=== PATIENT | female | born 1980 | race Caucasian/White ===

== ENCOUNTER 2019-12-26 17:26 | Emergency (ER) | payer MEDICARE, MEDICAID, SELFPAY ==
--- NOTE | ~2019-12-26 | XR_ITS ---
EXAMINATION: XR wrist LT min 3V DATE: 12/26/2019 18:25 INDICATION: Left wrist pain post fall on ice one month prior TECHNIQUE: Posteroanterior, ulnar deviation, oblique, and lateral views of the left wrist were obtain ed. COMPARISON: Left hand radiographs dated 10/02/2014 FINDINGS: Alignment is normal. No fracture. Mild osteoarthritis at the first-third metacarpophalangeal and firs t interphalangeal joints. IMPRESSION: 1. Mild polyarticular osteoarthritis. No evident acute/subacute osseous abnormality. Reviewed, dictated and finalized at location A. [employer]GER IMPRESSION: 1. Mild polyarticular osteoarthritis. No evident acute/subacute osseous abnorma lity.
[2019-12-26 18:01] VITALS: BP 105/73; PULSE 70; RESP 20; TEMP 36.7; O2SAT 98
--- NOTE | 2019-12-26 18:17 | ED.UPPEXIN ---
HPI - Extremity Injury (Upper) General Chief Complaint: Extremity Injury, Upper Stated Complaint: left wrist pain Time Seen by Provider: 12/26/19 18:17 Source: patient History of Present Illness HPI narrative: Patient presents with an injury to the left wrist 6 weeks ago. Patient has been followed by the orthopedic MD and was notified that there was no fracture to the left wrist. Patient returns today for new x-ray she has continued pain with movement to the left wrist. No swelling no numbness or tingling no bruising no open areas no deformity noted. Patient denies any new injury. MD complaint: injury to: left and wrist Other Extremity Injury: Left: wrist (No new injury) Related Data Home Medications Medication Instructions Recorded Confirmed Lamictal 12/26/19 Mobic 12/26/19 Topamax 12/26/19 Zoloft 12/26/19 amlodipine 12/26/19 gabapentin 12/26/19 oxybutynin chloride 12/26/19 Allergies Allergy/AdvReac Type Severity Reaction Status Date / Time gabapentin Allergy Unknown Hives Verified 12/26/19 18:29 meloxicam Allergy Unknown Hives Verified 12/26/19 18:29 STEROIDS Allergy Mild Unknown Uncoded 12/26/19 18:29 Review of Systems Review of Systems: Narrative: CONSTITUTIONAL: Denies fever, chills, or sweats. EYES: Denies visual changes, redness, or discharge. ENT: Denies rhinorrhea, congestion, sore throat, or otalgia. CARDIOVASCULAR: Denies chest pain, palpitations, or edema. RESPIRATORY: Denies cough or dyspnea. GASTROINTESTINAL: Denies abdominal pain, nausea, vomiting, or diarrhea. GENITOURINARY: Denies dysuria or hematuria. SKIN: Denies rash or itching. MUSCULOSKELETAL: Denies back pain, joint pain, or myalgia. Continued left wrist pain NEUROLOGIC: Denies headache, numbness, or weakness. PSYCHIATRIC: Denies anxiety or depression. PMFSH Social History Social History Gender identity (if verbalized by the patient): Female Comments At time of signature, agree with nursing past medical, surgical, social and family history. There is no relevant family history pertinent to the presenting complaint Exam Narrative: Exam Narrative: GENERAL: Well-appearing, well-nourished, and in no acute distress. HEAD: Normocephalic, atraumatic. EYES: PERRLA and EOMI. ENT: Nares clear, no rhinorrhea or epistaxis. Mucous membranes moist. NECK: Supple. CHEST: Clear to auscultation. No respiratory distress. HEART: Regular rate and rhythm. No murmur heard. Normal peripheral pulses. ABDOMEN: Soft, nontender, nondistended, normal active bowel sounds. EXTREMITIES: Normal range of motion. No edema. HAND EXAM - Skin intact, no laceration, no swelling, no erythema, normal digit cascade with flexion of fingers, median nerve, ulnar nerve, radial nerve is intact. Normal sensation of each side of each finger, can perform `ok? sign, `cross over finger test of index and middle fingers? and `thumbs up? sign, normal thumb opposition, no scissoring. good capillary refill and radial pulse. normal flexion and extension of fingers and wrist. normal supination at wrist. Normal forearm and elbow exam. SKIN: Warm, dry, no rash. NEURO: No focal deficits. Alert and oriented x3. Yadi Coma Scale Eye Opening: Spontaneous 4 Yadi Coma Scale Motor: Obeys Commands 6 Yadi Coma Scale Verbal: Oriented 5 [place] Coma Scale Total 15 Course Vital Signs Vital signs: Vital Signs Temperature 36.7 C 12/26/19 18:01 Pulse Rate 70 12/26/19 18:01 Respiratory Rate 20 12/26/19 18:01 Blood Pressure 105/73 12/26/19 18:01 Pulse Oximetry 98 12/26/19 18:01 Temperature 36.7 C 12/26/19 18:01 Pulse Rate 70 12/26/19 18:01 Respiratory Rate 20 12/26/19 18:01 Blood Pressure 105/73 12/26/19 18:01 Pulse Oximetry 98 12/26/19 18:01 MDM - Extremity Injury (Upper) Differential Diagnosis Differential diagnosis: Likely sprain and strain of wrist, fracture of wrist, finger sprain,
== END 2019-12-26 18:45 | disposition home or self-care (01) ==
PROVIDERS: Emergency Provider Nurse Practitioner Family
DX: S63.502D Unspecified sprain of left wrist, subsequent encounter (principal); S66.912D Strain of unspecified muscle, fascia and tendon at wrist and hand level, left hand, subsequent encounter; X58.XXXD Exposure to other specified factors, subsequent encounter; M19.032 Primary osteoarthritis, left wrist; M79.7 Fibromyalgia; Z96.641 Presence of right artificial hip joint
CPT/HCPCS: 73110; 99213; G0463

== ENCOUNTER 2023-04-18 19:46 | Emergency (ER) | payer MEDICARE, BC, MEDICAID, SELFPAY ==
[2023-04-18 19:55] VITALS: BP 111/73; PULSE 81; RESP 20; TEMP 36.9; O2SAT 100
--- NOTE | 2023-04-18 20:49 | ED.URI ---
HPI - URI/Sore Throat General Chief Complaint: Upper Respiratory Infection Stated Complaint: cough History of Present Illness HPI Narrative: Pt is a 43 y/o female, presents to 5 day hx of cough, rhinorrhea and spasmodic wheezing. No fevers. She notes she is feeling better but she cannot stop coughing and often experiences coughing fits when she laughs or talks. She has experienced this in the past with bronchitis, prompting her visit. She is not taking any OTC meds. She is out of her inhaler. She requests a cough suppressant as well but states she cannot take liquid medications as it causes her to gag. Related Data Home Medications Medication Instructions Recorded Confirmed atorvastatin 40 mg tablet 40 mg PO DIRECTED 04/18/23 04/18/23 cholecalciferol (vitamin D3) 50 50 mcg PO DIRECTED 04/18/23 04/18/23 mcg (2,000 unit) capsule lamotrigine 150 mg tablet 150 mg PO DIRECTED 04/18/23 04/18/23 oxybutynin chloride 5 mg tablet 5 mg PO DIRECTED 04/18/23 04/18/23 tirzepatide 5 mg/0.5 mL 5 mg subcut DIRECTED 04/18/23 04/18/23 subcutaneous pen injector (Mounjaro) topiramate 100 mg tablet 100 mg PO DIRECTED 04/18/23 04/18/23 ubrogepant 100 mg tablet (Ubrelvy) mg 04/18/23 Allergies Allergy/AdvReac Type Severity Reaction Status Date / Time gabapentin Allergy Unknown Hives Verified 04/18/23 20:00 meloxicam Allergy Unknown Hives Verified 04/18/23 20:00 STEROIDS AdvReac Mild Dizziness Uncoded 04/18/23 20:00 Review of Systems Constitutional: Comments: no fevers Respiratory: Comments: refer to [facility] Social History Social History Gender identity (if verbalized by the patient): Female Exam Const: General: healthy appearing, no acute distress and alert Orientation/consciousness: patient oriented x3 Limitations: no limitations Other: appears older than stated age HENMT: Head: normal to inspection Face/Nose/Sinus: Normal external nose present Face and sinus: normal facial exam Mouth: Yes Normal oral and palatal mucosa present and Yes lip normal Teeth and gingiva: dentition normal Throat: posterior oropharynx normal and uvula midline Eyes: Conjunctivae: conjunctivae normal Resp: Effort & Inspection: normal respiratory effort Auscultation: clear to auscultation bilaterally Other: spasmodic cough, no wheezing rales or rhonchi during normal inhalation and exhalation. She does have a forced wheeze when she is actively coughing Cardio: Rate: regular rate Rhythm: regular rhythm Skin: General skin exam: normal color Neuro: General: patient oriented x3 and moves all extremities Cranial nerves: Yes Nystagmus not present Speech: normal speech Gait exam (Neuro): Normal gait present Course Course Emergency Course: pt is advised of plan to treat with oral steroids, cough suppressant (promethazine DM compounded at home by taking promethazine with OTC Delsym for oral cough relief in a non liquid form), inhaler FU with PCP stressed if symptoms are not improving. Level of Care: Express Care Visit ([id number]) Vital Signs Vital signs: Vital Signs Temperature 36.9 C 04/18/23 19:55 Pulse Rate 81 04/18/23 19:55 Respiratory Rate 20 04/18/23 19:55 Blood Pressure 111/73 04/18/23 19:55 Pulse Oximetry 100 04/18/23 19:55 Temperature 36.9 C 04/18/23 19:55 Pulse Rate 81 04/18/23 19:55 Respiratory Rate 20 04/18/23 19:55 Blood Pressure 111/73 04/18/23 19:55 Pulse Oximetry 100 04/18/23 19:55 MDM - URI/Sore Throat Differential Diagnosis Differential diagnosis: Likely upper respiratory infection, sinusitis, viral infection and bronchitis Discharge Plan Discharge Clinical Impression: Bronchitis Patient Disposition: Home, Self-Care Condition: Stable Instructions: Antibiotic Form, Acute Bronchitis (ED) Additional Instructions: START AND COMPLETE STEROIDS DIRECTED. YOU MAY MAKE A C
== END 2023-04-18 20:00 | disposition home or self-care (01) ==
PROVIDERS: Emergency Provider Nurse Practitioner Family; PCP Nurse Practitioner Family
DX: J40 Bronchitis, not specified as acute or chronic (principal)
CPT/HCPCS: 99213; G0463

== ENCOUNTER 2024-03-12 19:06 | Emergency (ER) | payer MEDICARE, SELFPAY ==
--- NOTE | ~2024-03-12 | CT_ITS ---
EXAMINATION: CT abdomen pelvis wo con DATE: 03/12/2024 21:05 INDICATION: Flank pain. TECHNIQUE: Computed tomography (CT) of the abdomen and pelvis was performed without intravenous contr ast. Automated exposure control and iterative reconstruction technique were employed. The dose-length product was 250.41 mGy-cm. COMPARISON: CT abdomen 08/29/2005 FINDINGS: The visualized portions of the lung bases are clear without pneumonia or pleural effusion. The heart size is normal. No pericardial effusion. The liver is normal. There are changes of cholecys tectomy. The spleen, pancreas, and adrenal glands are normal. There is fusion of the inferior poles o f the kidneys across the midline (horseshoe kidney). There is a 2 mm stone in left kidney. There are no dilated loops of bowel. The appendix is normal. There is calcified atherosclerosis of the aorta an d many of the other arteries. There are no pathologically enlarged lymph nodes. There is no free intr aperitoneal fluid. There is mild thoracic and lumbar spondylosis. IMPRESSION: 1. Small nonobstructing left kidney stone. Reviewed, dictated and finalized at location E.
[2024-03-12 19:33] VITALS: BP 103/67; PULSE 67; RESP 18; TEMP 36.5; O2SAT 100
--- NOTE | 2024-03-12 19:35 | ED.GENADULT ---
HPI - General Adult General Chief complaint: Urogenital-Female Stated complaint: flank pain Time Seen by Provider: 03/12/24 19:08 History of Present Illness HPI narrative: 44-year-old female present to the emergency department for evaluation of persistent left flank pain. Patient began having symptoms of urinary tract infection history did have follow-up with her primary care physician. Patient was started on Macrobid and Pyridium as outpatient. Patient states that the Pyridium as help with some of her urgency symptoms with patient is still having left flank pain. 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 Patient called her primary care physician telling her about the persistent pain and she was referred to the emergency department for further workup. Patient does report associated nausea without vomiting and left flank pain. Related Data Home Medications Medication Instructions Recorded Confirmed lamotrigine 150 mg tablet 150 mg PO DIRECTED 04/18/23 03/11/24 oxybutynin chloride 5 mg tablet 5 mg PO DIRECTED 04/18/23 03/11/24 tirzepatide 5 mg/0.5 mL 5 mg subcut DIRECTED 04/18/23 03/11/24 subcutaneous pen injector (Mounjaro) ubrogepant 100 mg tablet (Ubrelvy) mg 04/18/23 03/11/24 clonazepam 0.5 mg tablet (Klonopin) 0.5 mg PO DAILY 06/21/23 03/11/24 zolpidem 5 mg tablet 5 mg PO 06/21/23 03/11/24 topiramate 100 mg tablet 100 mg PO DAILY 01/31/24 03/11/24 Allergies Allergy/AdvReac Type Severity Reaction Status Date / Time gabapentin Allergy Unknown Hives Verified 03/12/24 19:38 meloxicam Allergy Unknown Hives Verified 03/12/24 19:38 STEROIDS AdvReac Mild Dizziness Uncoded 03/12/24 19:38 Review of Systems Review of Systems: All systems reviewed & are unremarkable except as noted in HPI and below PMFSH Past Medical History Medical History Anxiety Arthritis Bipolar 1 disorder Episodic migraine Fibromyalgia Hyperlipidemia Insomnia OAB (overactive bladder) Obese Vaginal discharge Surgical History Surgical History H/O thumb surgery H/O tubal ligation H/O: hysterectomy History of delivery History of cholecystectomy History of orthopedic surgery multiple Hx of tonsillectomy Family History Family History Father Acute myocardial infarction Diabetes mellitus Heart disease Hypertension Mother Cervical cancer Grandparent Breast cancer Social History Social History Social History: Patient very confident in filling out medical forms. 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 HEAD: normocephalic, atraumatic. EYES: PERRLA/EOMI, conjunctivae clear. NOSE: Normal no drainage EARS:TMS clear with good light reflex. THROAT: Pharynx clear, no exudate. NECK: Supple. No adenopathy, no masses. RESPIRATORY: Airway patent, respirations nonlabored. Clear to auscultation bilaterally, no rales, rhonchi, wheezing. CARDIOVASCULAR: Regular rate and r
[2024-03-12 19:37] VITALS: BP 103/67; PULSE 67; RESP 18; TEMP 36.5; O2SAT 100
[2024-03-12 19:50] LABS: Basophils Percent Auto 0.3 % (0.2-1.2); Eosinophils Absolute Auto 0.1 K/mm3 (0-0.3); Eosinophils Percent Auto 2.1 % (0-4.4); Hematocrit 40.6 % (37.0-47.0); Hemoglobin 12.9 g/dL (12.0-15.0); Lymphocytes Absolute Auto 1.63 K/mm3 (0.9-3.2); Lymphocytes Percent Auto 43.4 % (18.3-44.2); Mean Corpuscular HGB Conc 31.8 g/dl (32-36); Mean Corpuscular Hemoglobin 28.6 pg (26-34); Mean Platelet Volume 9.4 fl (7.4-10.4); Monocytes Absolute Auto 0.2 K/mm3 (0.1-0.6); Monocytes Percent Auto 6.4 % (2.6-8.5); Neutrophils Absolute Auto 1.8 K/mm3 (1.3-6.7); Neutrophils Percent Auto 47.8 % (45.5-73.1); Platelet Count Result 190 k/mm3 (150-375); Red Blood Count 4.51 M/mm3 (4.2-5.4); Red Cell Distribution Width 12.9 % (11.5-14.5); White Blood Count 3.8 K/mm3 (4.5-10.0)
[2024-03-12] MEDS: HYDROmorphone HCL INJ (*CRX) 1 MG/ML SYR 0.5 MG IV PUSH (20:00)
[2024-03-12] MEDS: ONDANSETRON INJ 4 MG/2 ML VIAL IV PUSH (20:00)
[2024-03-12] MEDS: SODIUM CHLORIDE 0.9% IV 1,000 ML 999 ML IV CONT (20:00)
[2024-03-12 20:04] LABS: Alanine Aminotransferase 22 U/L (6-35); Albumin Level 4.3 g/dL (3.5-5.1); Alkaline Phosphatase 75 U/L (38-126); Anion Gap 7 mmol/L (4-12); Aspartate Amino Transferase 27 U/L (14-36); Bilirubin,Total 0.5 mg/dL (0.2-1.3); Blood Urea Nitrogen 14 mg/dL (7-17); Carbon Dioxide 27 mmol/L (22-30); Chloride 106 mmol/L (98-107); Estimated CRCL calculation 57 ml/min; Estimated Glomerular Filt Rate > 60; Glucose 77 mg/dL (65-110); Potassium 3.2 mmol/L (3.4-5.0); Sodium 140 mmol/L (137-145)
[2024-03-12 20:37] LABS: Add Urine Microscopic? YES; Appearance Urine Clear (Clear); Bacteria Urine None Seen /hpf; Bilirubin Urine Negative (Negative); Blood Urine Negative (Negative); Color Urine Dark Yellow (Yellow); Glucose Urine UA Negative (Negative); Ketones Urine Negative (Negative); Leukocyte Esterase Ur 1+ LEU/UL (Negative); Need Manual Microscopic Reviewed; Nitrate Urine Positive (Negative); Non Pathogenic Casts 0-2; Protein Urine Negative (Negative); RBC Urine 0-2 /hpf (0-2); Specific Grav Ur 1.006 (1.001-1.035); Squamous Epithelial Cell Urine None Seen /hpf (Few); WBC Urine 0-5 /hpf (0-3); pH Urine 6.5 (5.0-9.0)
[2024-03-12 20:44] LABS: Pregnancy On Board Control Positive; Urine Pregnancy Test Negative
[2024-03-12 21:52] VITALS: BP 102/63; PULSE 71; RESP 18; O2SAT 100
== END 2024-03-12 21:55 | disposition home or self-care (01) ==
PROVIDERS: Emergency Provider Emergency Medicine; PCP Nurse Practitioner Family
DX: N39.0 Urinary tract infection, site not specified (principal); N32.81 Overactive bladder; M79.7 Fibromyalgia; M19.90 Unspecified osteoarthritis, unspecified site; E66.9 Obesity, unspecified; Z68.20 Body mass index [BMI] 20.0-20.9, adult; Q63.1 Lobulated, fused and horseshoe kidney; F31.9 Bipolar disorder, unspecified; F41.9 Anxiety disorder, unspecified; Z87.891 Personal history of nicotine dependence; Z90.710 Acquired absence of both cervix and uterus; Z90.49 Acquired absence of other specified parts of digestive tract; N20.0 Calculus of kidney
CPT/HCPCS: 36415; 74176; 80053; 81001; 81025; 85025; 96361; 96374; 96375; 99284; J1170; J2405; J7030

== ENCOUNTER 2024-03-29 19:49 | Emergency (ER) | payer MEDICARE, SELFPAY ==
[2024-03-29 19:55] VITALS: BP 105/70; PULSE 81; RESP 16; TEMP 36.4; O2SAT 100
--- NOTE | 2024-03-29 21:26 | ED.EXTPRO ---
HPI - Extremity Problem General Chief complaint: Extremity Problem,Nontraumatic Stated complaint: Right calf pain Time Seen by Provider: 03/29/24 20:44 History of Present Illness HPI Narrative: Patient is a 44-year-old female who presents to the emergency department this evening complaining of swelling to her right calf. Patient states that she did not notice swelling herself but somebody else noticed it and she does admit that she does have some pain in her right calf lesion. She denies any recent flights or extended car rides, denies any family history of blood clotting disorders and denies any current hormonal use. Patient is also denying any chest pain or shortness of breath, any fevers or chills, denies any additional symptoms or concerns at this time. Related Data Home Medications Medication Instructions Recorded Confirmed lamotrigine 150 mg tablet 150 mg PO DIRECTED 04/18/23 03/11/24 oxybutynin chloride 5 mg tablet 5 mg PO DIRECTED 04/18/23 03/11/24 tirzepatide 5 mg/0.5 mL 5 mg subcut DIRECTED 04/18/23 03/11/24 subcutaneous pen injector (Mounjaro) ubrogepant 100 mg tablet (Ubrelvy) mg 04/18/23 03/11/24 clonazepam 0.5 mg tablet (Klonopin) 0.5 mg PO DAILY 06/21/23 03/11/24 zolpidem 5 mg tablet 5 mg PO 06/21/23 03/11/24 topiramate 100 mg tablet 100 mg PO DAILY 01/31/24 03/11/24 Allergies Allergy/AdvReac Type Severity Reaction Status Date / Time gabapentin Allergy Unknown Hives Verified 03/29/24 20:20 meloxicam Allergy Unknown Hives Verified 03/29/24 20:20 STEROIDS AdvReac Mild Dizziness Uncoded 03/29/24 20:20 Review of Systems Review of Systems: All systems are reviewed and are negative unless stated otherwise in the HPI. [facility] Past Medical History Medical History Anxiety Arthritis Bipolar 1 disorder Episodic migraine Fibromyalgia Hyperlipidemia Insomnia OAB (overactive bladder) Obese Vaginal discharge Surgical History Surgical History H/O thumb surgery H/O tubal ligation H/O: hysterectomy History of delivery History of cholecystectomy History of orthopedic surgery multiple Hx of tonsillectomy Family History Family History Father Acute myocardial infarction Diabetes mellitus Heart disease Hypertension Mother Cervical cancer Grandparent Breast cancer Social History Social History Social History: Patient very confident in filling out medical forms. 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 HEENT: PERRL, no rhinorrhea, no post nasal drip, oropharynx clear. Cardiovascular: Regular rate and rhythm, no murmurs, rubs or gallops, no peripheral edema. Respiratory: Clear to auscultation bilaterally, no tachypnea, no wheezing, no rhonchi, no rubs, no respiratory distress. Abdomen: Soft, nontender, nondistended, no rebound, no guarding, no peritoneal signs. Musculoskeletal: No joint swelling or deformity, normal muscle tone, right lower extremity swelling mainly noted around t
== END 2024-03-29 21:38 | disposition home or self-care (01) ==
PROVIDERS: Emergency Provider Emergency Medicine; PCP Nurse Practitioner Family
DX: M79.89 Other specified soft tissue disorders (principal); F41.9 Anxiety disorder, unspecified; M19.90 Unspecified osteoarthritis, unspecified site; F31.9 Bipolar disorder, unspecified; M79.7 Fibromyalgia; E78.5 Hyperlipidemia, unspecified
CPT/HCPCS: 99281

== ENCOUNTER 2024-03-31 07:37 | Outpatient (CLI) | payer MEDICARE, SELFPAY ==
--- NOTE | ~2024-03-31 | US_ITS ---
EXAMINATION:US venous doppler LE RT INDICATION:Swelling and leg pain TECHNIQUE: Multiple grayscale, color flow and Doppler images of the right lower extremity deep venous systems were obtained and reviewed. COMPARISON:No prior studies for comparison. FINDINGS: The common femoral, superficial femoral and popliteal veins demonstrate normal respiratory variation, augmentation and compressibility. Color flow is also seen within the posterior tibial, pe roneal, greater saphenous and profunda veins. IMPRESSION: 1: No lower extremity deep venous thrombosis. Reviewed, dictated and finalized at location B.
== END 2024-03-31 07:38 | disposition home or self-care (01) ==
PROVIDERS: PCP Nurse Practitioner Family; Visit Provider Emergency Medicine
DX: R22.41 Localized swelling, mass and lump, right lower limb (principal)
CPT/HCPCS: 93971

== ENCOUNTER 2024-08-05 09:07 | Emergency (ER) | payer MEDICARE, SELFPAY ==
--- NOTE | ~2024-08-05 | XR_ITS ---
EXAMINATION: XR knee RT 3V DATE: 08/05/2024 10:28 INDICATION: Right knee pain. Fall. TECHNIQUE: 3 views of right knee were obtained. COMPARISON: Right knee radiographs 03/20/2018 FINDINGS: Alignment is normal. No fracture. There is mild tricompartment osteoarthritis. No knee join t effusion. IMPRESSION: 1. Mild right knee osteoarthritis. Reviewed, dictated and finalized at location A.
[2024-08-05 09:13] VITALS: BP 103/65; PULSE 69; RESP 15; TEMP 36.4; O2SAT 100
[2024-08-05] MEDS: KETOROLAC (*BKC) 60 MG/2 ML VIAL IM (09:44)
[2024-08-05 11:29] VITALS: BP 93/65; PULSE 70; RESP 18; TEMP 36.6; O2SAT 96
--- NOTE | 2024-08-05 12:15 | ED.LOWEXIN ---
HPI - Extremity Injury (Lower) General Chief Complaint: Extremity Injury, Lower Stated Complaint: fall, R knee pain Time Seen by Provider: 08/05/24 09:26 History of Present Illness HPI Narrative: Patient is a 44-year-old female who presents ER with right knee pain. She is walking down some steps yesterday when her for went through the step and caused her to strike her knee. She has pain with ambulation as well as flexion extension. No swelling. She has wrapped the area in been taking anti-inflammatories. She did not strike her head or suffer any additional injury. Related Data Home Medications Medication Instructions Recorded Confirmed lamotrigine 150 mg tablet 150 mg PO DIRECTED 04/18/23 06/24/24 ubrogepant 100 mg tablet (Ubrelvy) mg 04/18/23 06/24/24 clonazepam 0.5 mg tablet (Klonopin) 0.5 mg PO DAILY 06/21/23 06/24/24 zolpidem 5 mg tablet 5 mg PO 06/21/23 06/24/24 topiramate 100 mg tablet 100 mg PO DAILY 01/31/24 06/24/24 Allergies Allergy/AdvReac Type Severity Reaction Status Date / Time gabapentin Allergy Unknown Hives Verified 06/24/24 14:19 meloxicam Allergy Unknown Hives Verified 06/24/24 14:19 adhesive tape Allergy Other Verified 08/05/24 09:08 nylon Allergy Other Verified 08/05/24 09:08 STEROIDS AdvReac Mild Dizziness Uncoded 06/24/24 14:19 Review of Systems Constitutional: Constitutional: Reports no additional constitutional complaints Musculoskeletal: Musculoskeletal: Reports arthralgias, Denies joint swelling and Denies muscle cramps Integumentary/Breasts: Skin/Breast: Reports system reviewed and no additional complaints, except as docu Neurologic: Reports system reviewed and no additional complaints, except as documented [facility] Past Medical History Medical History Anxiety Arthritis Bipolar 1 disorder Episodic migraine Fibromyalgia Hyperlipidemia Insomnia OAB (overactive bladder) Obese Vaginal discharge Surgical History Surgical History H/O thumb surgery H/O tubal ligation H/O: hysterectomy History of delivery History of cholecystectomy History of orthopedic surgery multiple Hx of tonsillectomy Family History Family History Father Acute myocardial infarction Diabetes mellitus Heart disease Hypertension Mother Cervical cancer Grandparent Breast cancer Social History Social History Social History: Patient very confident in filling out medical forms. 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 HEAD: Normocephalic, atraumatic. ENT: Mucous membranes moist CHEST: Clear to auscultation. No respiratory distress. HEART: Regular rate and rhythm. Normal peripheral pulses. EXTREMITIES: Normal range of motion. No edema. Tender palpation medial right knee. SKIN: Warm, dry, no rash. NEURO: Alert and oriented x3. PSYCH: Normal mood and affect. Course Course Emergency Course: No osseous injury. Discussed conservative therapy. Discharge home. Joycelyn whittington
== END 2024-08-05 12:40 | disposition home or self-care (01) ==
PROVIDERS: Emergency Provider Emergency Medicine; PCP Nurse Practitioner Family
DX: S89.91XA Unspecified injury of right lower leg, initial encounter (principal); E78.5 Hyperlipidemia, unspecified; E66.9 Obesity, unspecified; Z68.21 Body mass index [BMI] 21.0-21.9, adult; Z87.891 Personal history of nicotine dependence; N32.81 Overactive bladder; M79.7 Fibromyalgia; M19.90 Unspecified osteoarthritis, unspecified site; Z90.710 Acquired absence of both cervix and uterus; Z90.49 Acquired absence of other specified parts of digestive tract; Z79.899 Other long term (current) drug therapy; W10.9XXA Fall (on) (from) unspecified stairs and steps, initial encounter
CPT/HCPCS: 73562; 96372; 99283; J1885

== ENCOUNTER 2024-08-21 10:51 | Outpatient (CLI) | payer MEDICARE, SELFPAY ==
--- NOTE | ~2024-08-21 | MR_ITS ---
EXAMINATION: MR knee RT wo con DATE: 08/21/2024 11:29 INDICATION: Right knee pain. TECHNIQUE: Magnetic resonance imaging (MRI) of the right knee was performed without intravenous contr ast. Sequences included axial PD-weighted FS FSE, coronal PD-weighted FSE and PD-weighted FS FSE, sag ittal PD-weighted FSE, and sagittal T2-weighted FS FSE. COMPARISON: Right knee radiographs 08/05/2024 FINDINGS: Medial compartment: Body and posterior horn of medial meniscus are small with blunted free edge, likely changes of partia l meniscectomy given the history of prior surgery. There is cartilage surface irregularity of tibial condyle and femoral condyle. There is edema-like marrow signal intensity and medial aspect of medial femoral condyle. There are tiny osteophytes. Lateral compartment: Lateral meniscus is normal. Lateral compartment cartilage is normal. There are tiny osteophytes. Patellofemoral compartment: There is deep partial-thickness cartilage loss of patellar median ridge and cartilage surface irregul arity of patellar medial and lateral facets. There is cartilage surface irregularity of central troch douglas. Ligaments and tendons: The anterior and posterior cruciate ligaments are normal. Medial collateral ligament and lateral eleanor ateral ligament complex are intact. There is mild patellar tendinopathy. Fluid: There is a small knee joint effusion. IMPRESSION: 1. Moderate chondrosis of patellofemoral compartment and mild chondrosis of medial compartment. 2. Small knee joint effusion. Reviewed, dictated and finalized at location A. IMPRESSION: 1. Moderate chondrosis of patellofemoral compartment and mild chondrosis of med ial compartment. 2. Small knee joint effusion.
== END 2024-08-21 10:52 | disposition home or self-care (01) ==
LOC: GOSHIMG 10:52
PROVIDERS: PCP Nurse Practitioner Family; Visit Provider Nurse Practitioner Family
DX: M25.461 Effusion, right knee (principal)
CPT/HCPCS: 73721

== ENCOUNTER 2025-01-27 18:53 | Emergency (ER) | payer OTHER, MEDICARE, SELFPAY ==
--- NOTE | ~2025-01-27 | XR_ITS ---
HISTORY: lateral pain/swelling x5 days COMPARISON: 02/03/2019 TECHNIQUE: 3 views of the right ankle were performed FINDINGS: No acute fracture or dislocation. No significant soft tissue swelling, despite presenting history. The ankle mortise is preserved. Bone mineralization is age-appropriate. Postoperative change within the calcaneus suggesting prior tendon repair. IMPRESSION: No acute fracture or dislocation. Query the presence of an inciting injury, as none is described in patient's history. Reviewed, dictated and finalized at location A. IMPRESSION: No acute fracture or dislocation. Query the presence of an inciting injury, as none is described in patient's his tory.
[2025-01-27 19:00] VITALS: BP 105/70; PULSE 78; RESP 19; TEMP 37.1; O2SAT 99
--- NOTE | 2025-01-27 19:24 | ED_ITS ---
HPI - Extremity Injury (Lower) General Chief Complaint: Extremity Injury, Lower Stated Complaint: Right Leg/Ankle Pain Time Seen by Provider: 01/27/25 19:15 Source: patient and RN notes reviewed Mode of arrival: ambulatory Limitations: no limitations History of Present Illness HPI Narrative: Patient presents today complaining of right ankle pain x5 days. Patient states symptoms started after she wore some high heels, but denies any specific injury. She noted some swelling and bruising to the lateral ankle 4 days ago. States pain has been worsening since onset. She denies numbness or tingling. She has not tried any [id number] interventions prior to arrival. Related Data Home Medications ?Medication ?Instructions ?Recorded ?Confirmed ?Last Taken ?Type lamotrigine 150 mg tablet 150 mg PO DIRECTED 04/18/23 06/24/24 Unknown History clonazepam 0.5 mg tablet (Klonopin) 0.5 mg PO DAILY 06/21/23 06/24/24 Unknown History zolpidem 5 mg tablet 5 mg PO 06/21/23 06/24/24 Unknown History topiramate 100 mg tablet 100 mg PO DAILY 01/31/24 06/24/24 Unknown History Allergies Allergy/AdvReac Type Severity Reaction Status Date / Time gabapentin Allergy Unknown Hives Verified 01/27/25 19:01 meloxicam Allergy Unknown Hives Verified 01/27/25 19:01 adhesive tape Allergy Other Verified 01/27/25 19:01 nylon Allergy Other Verified 01/27/25 19:01 STEROIDS AdvReac Mild Dizziness Uncoded 06/24/24 14:19 Review of Systems Review of Systems: CONSTITUTIONAL: Denies body aches, fever, chills, or sweats. EYES: Denies visual changes, redness, or discharge. ENT: Denies rhinorrhea, congestion, sore throat, or otalgia. CARDIOVASCULAR: Denies chest pain, palpitations, or edema. RESPIRATORY: Denies cough or dyspnea. GASTROINTESTINAL: Denies abdominal pain, nausea, vomiting, or diarrhea. GENITOURINARY: Denies dysuria or hematuria. SKIN: Denies rash, itching, or wounds. MUSCULOSKELETAL: Denies back pain, or myalgia.+ right ankle pain NEUROLOGIC: Denies headache, numbness, tingling, or weakness. PSYCH: Denies depression or anxiety. [facility], LAT[facility] Past Medical History Medical History Bipolar 1 disorder OAB (overactive bladder) Insomnia Obese Episodic migraine Anxiety Vaginal discharge Hyperlipidemia Fibromyalgia Arthritis Surgical History Surgical History History of cholecystectomy History of delivery Hx of tonsillectomy H/O: hysterectomy H/O tubal ligation H/O thumb surgery History of orthopedic surgery multiple Family History Family History Father Acute myocardial infarction Diabetes mellitus Heart disease Hypertension Mother Cervical cancer Grandparent Breast cancer Social History Social History Social History: 09/17/24 Patient very confident in filling out medical forms. 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 Please see nursing chart for further information. There is no relevant family history pertinent to the presenting complaint Exam Narrative: GENERAL: Well-appearing, well-nourished, and in no acute distress. HEAD: Normocephalic, atraumatic. EYES: EOMI. No redness or drainage. Conjunctivae normal. ENT: Mucous membranes pink and moist. NECK: Normal AROM. CHEST: No respiratory distress. EXTREMITIES: Right ankle: Mild tenderness to the lateral malleolus with mild localized edema just anterior to the lateral malleolus with faint ecchymosis. No tenderness medially or posteriorly. Distal sensation intact. Capillary refill normal. Pedal pulse normal. Full range of motion of the toes and ankle. SKIN: Warm, dry, no rash. Capillary refill normal. Normal skin turgor. NEURO: No focal deficits. Alert and oriented x3. Gait steady. PSYCH: Normal affect. No signs of depression or anxiety. Course Course Level of Care: Express Care Visit Vital Signs Vital signs: Vital Signs Temperature 98.7 F 01/27/25 19:00 Pulse Rate 78 01/27/25 19:00 Respiratory Rate 19 01/27/25 19:00 Blood Pressure 105/70 01/27/25 19:00 Pulse Oximetry 99 01/27/25 19:00 Oxygen Delivery Room Air 01/27/25 19:00 Temperature 98.7 F 01/27/25 19:00 Pulse Rate 78 01/27/25 19:00 Respiratory Rate 19 01/27/25 19:00 Blood Pressure 105/70 01/27/25 19:00 Pulse Oximetry 99 01/27/25 19:00 Oxygen Delivery Room Air 01/27/25 19:00 Reviewed MDM - Extremity Injury (Lower) MDM Narrative Medical decision making narrative: X-ray is negative for acute fracture. Due to patient's mild localized swelling and bruising laterally, she likely sprained her ankle but was unaware. Declined Tito wrap. Discussed ice and elevation as well as follow-up in 7-10 days if symptoms persist. Anticipatory guidance given. Differential Diagnosis Differential diagnosis: Likely ankle sprain and strain and ankle fracture Imaging Data Radiologist's impression: ITS Impressions Ankle X-Ray 01/27/25 19:49 IMPRESSION: No acute fracture or dislocation. Query the presence of an inciting injury, as none is described in patient's history. Critical Care Time Critical Care Time Critical Care Time: No Discharge Plan Discharge Clinical Impression: Right ankle sprain Qualifiers: Encounter type: initial encounter Involved ligament of ankle: unspecified ligament Qualified Code(s): S93.401A - Sprain of unspecified ligament of right ankle, initial encounter Patient Disposition: Home, Self-Care Condition: Stable Instructions: Ankle Sprain (DC) Additional Instructions: Your x-rays negative for fracture. Ice and elevate your ankle. Take Tylenol or ibuprofen for pain if needed. Follow-up with your PCP or orthopedics in 7-10 days if symptoms are not improving. Patient Language: Tanzanian Prescriptions: No Action lamotrigine 150 mg tablet 150 mg PO DIRECTED estradiol 0.01 % (0.1 mg/gram) cream 1 g vaginal 3XW Qty: 42.5 3RF zolpidem 5 mg tablet 5 mg PO clonazepam [Klonopin] 0.5 mg tablet 0.5 mg PO DAILY topiramate 100 mg tablet 100 mg PO DAILY Ubrelvy 100 mg tablet 100 mg PO ONCE Qty: 16 5RF Rx Instructions: may repeat 100 mg dose after 2 hours if symptoms persist. oxybutynin chloride 5 mg tablet 5 mg PO DAILY Qty: 90 1RF Mounjaro 7.5 mg/0.5 mL pen injector 7.5 mg subcut WEEKLY Qty: 2 3RF Follow-up/Referrals: Lizeth Lopez APRN [Primary Care Provider] - Mike Huang MD [Physician] - Time of Disposition: 20:01
== END 2025-01-27 20:05 | disposition home or self-care (01) ==
PROVIDERS: Emergency Provider Nurse Practitioner; PCP Nurse Practitioner Family
DX: S93.401A Sprain of unspecified ligament of right ankle, initial encounter (principal); X58.XXXA Exposure to other specified factors, initial encounter; Z87.891 Personal history of nicotine dependence; E78.5 Hyperlipidemia, unspecified; M79.7 Fibromyalgia; M19.90 Unspecified osteoarthritis, unspecified site; E66.9 Obesity, unspecified; Z68.21 Body mass index [BMI] 21.0-21.9, adult; F41.9 Anxiety disorder, unspecified; F31.9 Bipolar disorder, unspecified
CPT/HCPCS: 73610; 99213; G0463